=== PATIENT | male | born 1995 | race Caucasian/White ===

== ENCOUNTER 2018-07-03 13:05 | Emergency (ER) | payer OTHER | END 2018-07-03 17:24 | disposition home or self-care (01) | LOC: FTE 13:05 | DX: L29.9 Pruritus, unspecified (principal) | CPT/HCPCS: 99283; Z7502 ==

== ENCOUNTER 2018-09-26 20:49 | Emergency (ER) | payer OTHER | END 2018-09-26 21:57 | disposition home or self-care (01) | LOC: FTE 20:49 | DX: K05.30 Chronic periodontitis, unspecified (principal); F17.210 Nicotine dependence, cigarettes, uncomplicated | CPT/HCPCS: 99283; Z7502 ==